=== PATIENT | female | born 1950 | race Caucasian/White ===

== ENCOUNTER 2016-11-12 17:35 | Emergency (ER) | payer OTHER, MEDICARE ==
--- NOTE | 2016-11-12 18:24 | CPEKG ---
Heart Rate: 92 RR Interval: 652 P-R Interval: 120 QRSD Interval: 134 QT Interval: 384 QTC Interval: 476 P [place]: 52 QRS [place]: 113 T Wave [place]: -2 EKG Severity - ABNORMAL ECG - EKG Impression: SINUS RHYTHM EKG Impression: RBBB AND LPFB Electronically Signed By: Kirt Benz 12-Nov-2016 21:57:35
--- NOTE | 2016-11-12 18:29 | EDPHY ---
HPI/HX/ROS/PE/MDM Narrative: CHIEF COMPLAINT: Back pain, chest pain. HISTORY OF PRESENT ILLNESS: The patient is a 66-year-old female presenting with acute back pain and chest pain that started around 1pm today. The patient reports an episode of right shoulder pain 6 days ago that radiates down her right arm. This pain improved after taking Advil and stopping her new cholesterol medication. However, today she developed right sided chest pain and right sided back pain. The pain in her back is localized between her right scapula and spine. She states the pain radiates through to her chest. She has right sided chest pain that is worse to the touch and worse when bending down. She states she was picking up things around the house today and may have strained a muscle. Her pain today was unrelieved with Advil. She has no history of shingles. The patient is finished a course of Amoxicillin which she was taking for sinusitis. No fever, chills, shortness of breath, palpitations, vomiting, diarrhea, urinary complaints, headache, or lightheadedness. REVIEW OF SYSTEMS: Aside from elements discussed in the HPI, a comprehensive 10-point review of systems was reviewed and is negative. PAST MEDICAL HISTORY: Diabetes, glaucoma, kidney stones, RBBB, Oral surgeries. SOCIAL HISTORY: . VITAL SIGNS: Reviewed by me GENERAL: Well-developed, well-nourished, resting comfortably in no respiratory distress. HEENT: Atraumatic. Eyes: No icterus, no injection. Mouth: moist mucous membranes. No erythema or lesions. Neck: supple with no adenopathy. LUNGS: Clear to auscultation bilaterally, no wheezes, rhonchi or rales. CARDIAC: Regular rate and rhythm, no rubs, murmurs or gallops. ABDOMEN: Soft, nontender, nondistended, bowel sounds normal. BACK: Well localized tenderness in back between spine and scapula, though pushing there does not reproduce pain in chest. EXTREMITIES: No trauma. No edema. Range of motion is normal throughout. NEURO: Alert and oriented, grossly nonfocal. SKIN: Warm and dry, no rash. PSYCHIATRIC: Normal mentation, no agitation. Portions of this note were transcribed by a medical assembly. I personally performed a history, physical exam, medical decision making, and confirmed accuracy of information the transcribed note. ED Course: The patient is a 66-year-old female with history of diabetes who presents with acute back and chest pain. The patient complain of back pain between her spine and scapula. On exam she has well localized tenderness there, however this pain does not reproduce pain in her chest when palpated. IV was established, the patient received 15mg Toradol IV for pain. Plan for EKG, chest x-ray, labs, and troponin. The 12 lead EKG was interpreted by myself. See hard copy and/or "tracemaster" electronic copy for interpretation. Sinus rhythm, RBBB. No change from previous EKG. X-ray of the chest was obtained. I viewed the images myself on the PACS system. Normal. See the full radiology report in the imaging section. I checked the patient's CPK to rule out rhabdomyolysis secondary to recent start of cholesterol medication. CPK is normal. Patient's workup so far is unremarkable. D-dimer is normal. WBC is normal. 7:55 p.m.: I discussed findings with the patient. The patient feels like her pain is flu-like. Plan to check influenza nasal swab. Patient's course was also discussed with Dr. Link. Patient will follow up with Cardiology for further evaluation and possible risk stratification in the next several days. I believe the patient is safe to be discharged home. I did not believe her complaints in symptoms currently represent acute coronary syndrome. She understands if her symptoms should change she should return to the emergency department. The differential diagnosis for the patient's chest pain included but was not limited to myocardial ischemia, pulmonary embolus, chest wall pain, musculoskeletal pain, pleural inflammation, and pulmonary infectious causes. Influenza is still pending. Patient will call the ED tomorrow for results. MDM: After history and physical examination, the differential for this patient's chest pain was considered, including but not limited to, myocardial ischemia, acute coronary syndrome, pulmonary embolus, chest wall pain, medication effect, viral syndrome, shingles, and pulmonary infectious causes. Patient's heart score is 3-4. The patient does have hypercholesterolemia, her heart score would before. However, she states that she was placed on statins given her age, history of diabetes, history of hypertension. We discussed the possibilities of her symptoms representing acute coronary syndrome. Symptoms are very atypical with persistent back tenderness, exacerbation of the discomfort with certain movements of the chest wall, pain in her leg which developed while in the emergency department and pain in the left axillary region which also developed while she was in the emergency department. She reports that just feels like she has the "flu". Her EKG is nonischemic. She does have right bundle branch block which she states is old. Her symptoms may be related to being started on statins. She has been off them now for 4 days. She did have a treadmill test performed 1 and half years ago which she states was normal. Plans were made for the patient to be evaluated by Dr. Chirag Link tomorrow. Patient and her family are comfortable with this plan. - Data Points Imaging Results: Imaging Impressions Chest X-Ray 11/12/16 18:28 Impression: Normal chest. Laboratory Results: Laboratory Results 11/12/16 18:35 11/12/16 18:35 11/12/16 11/12/16 11/12/16 20:00 18:35 18:35 WBC RBC Hgb Hct MCV MCH MCHC RDW Plt Count MPV Neut % (Auto) Lymph % (Auto) [place] % (Auto) Eos % (Auto) Baso % (Auto) Nucleat RBC Rel Count Absolute Neuts (auto) Absolute Lymphs (auto) Absolute Monos (auto) Absolute Eos (auto) Absolute Basos (auto) Absolute Nucleated RBC Immature Gran % Immature Gran # D-Dimer < 0.27 ug/mLFEU ug/mLFEU (0.00-0.50) Sodium 139 mEq/L mEq/L (134-144) Potassium 3.3 mEq/L L mEq/L (3.5-5.2) Chloride 97 mEq/L mEq/L (97-110) Carbon Dioxide 28 mEq/l mEq/l (22-31) Anion Gap 14 mEq/L mEq/L (8-16) BUN 20 mg/dL mg/dL (7-23) Creatinine 0.7 mg/dL mg/dL (0.6-1.0) Estimated GFR > 60 Glucose 128 mg/dL H mg/dL (70-100) Calcium 9.9 mg/dL mg/dL (8.5-10.4) Total Bilirubin 0.5 mg/dL mg/dL (0.1-1.4) Conjugated Bilirubin 0.4 mg/dL mg/dL (0.0-0.5) Unconjugated Bilirubin 0.1 mg/dL mg/dL (0.0-1.1) AST 38 IU/L IU/L (14-46) ALT 38 IU/L IU/L (9-52) Alkaline Phosphatase 106 IU/L IU/L (38-126) Creatine Kinase 120 IU/L IU/L (0-156) Troponin I < 0.012 ng/mL ng/mL (0-0.034) Total Protein 8.1 g/dL g/dL (6.3-8.2) Albumin 4.6 g/dL g/dL (3.5-5.0) Lipase 92.0 IU/L IU/L (23-300) Influenza A & B (PCR) NEGATIVE FOR FLU (NEGATIVE) 11/12/16 18:35 WBC 11.19 10^3/uL H 10^3/uL (3.80-9.50) RBC 5.15 10^6/uL 10^6/uL (4.18-5.33) Hgb 14.6 g/dL g/dL (12.6-16.3) Hct 44.0 % % (38.0-47.0) MCV 85.4 fL fL (81.5-99.8) MCH 28.3 pg pg (27.9-34.1) MCHC 33.2 g/dL g/dL (32.4-36.7) RDW 13.7 % % (11.5-15.2) Plt Count 275 10^3/uL 10^3/uL (150-400) MPV 9.5 fL fL (8.7-11.7) Neut % (Auto) 70.7 % % (39.3-74.2) Lymph % (Auto) 19.6 % % (15.0-45.0) [place] % (Auto) 7.9 % % (4.5-13.0) Eos % (Auto) 0.6 % % (0.6-7.6) Baso % (Auto) 0.4 % % (0.3-1.7) Nucleat RBC Rel Count 0.0 % % (0.0-0.2) Absolute Neuts (auto) 7.91 10^3/uL H 10^3/uL (1.70-6.50) Absolute Lymphs (auto) 2.19 10^3/uL 10^3/uL (1.00-3.00) Absolute Monos (auto) 0.88 10^3/uL H 10^3/uL (0.30-0.80) Absolute Eos (auto) 0.07 10^3/uL 10^3/uL (0.03-0.40) Absolute Basos (auto) 0.05 10^3/uL 10^3/uL (0.02-0.10) Absolute Nucleated RBC 0.00 10^3/uL 10^3/uL (0-0.01) Immature Gran % 0.8 % % (0.0-1.1) Immature Gran # 0.09 10^3/uL 10^3/uL (0.00-0.10) D-Dimer Sodium Potassium Chloride Carbon Dioxide Anion Gap BUN Creatinine Estimated GFR Glucose Calcium Total Bilirubin Conjugated Bilirubin Unconjugated Bilirubin AST ALT Alkaline Phosphatase Creatine Kinase Troponin I Total Protein Albumin Lipase Influenza A & B (PCR) Medications Given: Discontinued Medications Ketorolac Tromethamine (Toradol) 15 mg IVP EDNOW ONE Stop: 11/12/16 19:55 Last Admin: 11/12/16 20:03 Dose: 15 mg Ketorolac Tromethamine (Toradol) 15 mg IVP ONCE ONE Stop: 11/12/16 21:03 Last Admin: 11/12/16 21:03 Dose: 15 mg General Time Seen by Provider: 11/12/16 18:13 Initial Vital Signs: Initial Vital Signs Temperature (C) 37 C 11/12/16 17:41 Heart Rate 100 11/12/16 17:41 Respiratory Rate 18 11/12/16 17:41 Blood Pressure 189/103 H 11/12/16 17:41 O2 Sat (%) 93 11/12/16 17:41 O2 Delivery Mode Room Air Allergies/Adverse Reactions: No Known Allergies Allergy (Verified 02/13/16 06:43) Home Medications: Medication Instructions Recorded Losartan-Hctz 100-25 mg Tab 01/18/16 Metformin HCl 500 mg PO BID 01/18/16 Amoxicillin 11/12/16 Lovastatin 11/12/16 Departure - Departure Disposition: Home, Routine, Self-Care Clinical Impression: Chest pain, Muscle pain Condition: Good Instructions: Chest Pain (ED), Musculoskeletal Pain (ED) Additional Instructions: Dr. Bloise will call you tomorrow to arrange a followup appointment. If you do not hear from him please call his office. Please stop taking the cholesterol medications. Please discuss this reaction with your primary care physician. I recommend Ibuprofen (Motrin, Advil) or Naproxen Sodium (Aleve) for pain and anti-inflammatory effects. You may take either one, but do not take both. Your dose is: Ibuprofen 600 mg every 6-8 hours with food. OR Naproxen Sodium (Aleve) 220 mg every 12 hours. Return to the emergency department or seek care urgently if you develop worsening pain, palpitations, lightheadedness, dizziness, fainting, fevers, or other concerns. You may call the emergency department [phone] in about half an hour to obtain the results of your influenza testing. Referrals: Isaac Shah MD [Primary Care Provider] - As per Instructions Ryan Link MD [Medical Doctor] - As per Instructions Report Scribed for: Elana Houston Report Scribed by: Hetal Samuel Date of Report: 11/12/16 Time of Report: 19:06
[2016-11-12 18:58] LABS: % IMMATURE GRANULYOCYTES 0.8 % (0.0-1.1); ABSOLUTE IMMATURE GRANULOCYTES 0.09 10^3/uL (0.00-0.10); ADD DIFF? NO; ADD MORPH? NO; ADD SCAN? NO; ATYPICAL LYMPHOCYTE FLAG 10 (0-99); FRAGMENT RBC FLAG 0 (0-99); HEMOGLOBIN 14.6 g/dL (12.6-16.3); LEFT SHIFT FLG 10 (0-99); LIPEMIA HEMOLYSIS FLAG 80 (0-99); MEAN CELL HEMOGLOBIN 28.3 pg (27.9-34.1); MEAN CELL HEMOGLOBIN CONCENTR. 33.2 g/dL (32.4-36.7); MEAN CELL VOLUME 85.4 fL (81.5-99.8); MEAN PLATELET VOLUME 9.5 fL (8.7-11.7); PLATELET CLUMPS FLAG 0 (0-99); PLATELET COUNT 275 10^3/uL (150-400); RED BLOOD CELL COUNT 5.15 10^6/uL (4.18-5.33); RED CELL DISTRIBUTION WIDTH 13.7 % (11.5-15.2)
[2016-11-12 19:28] LABS: ALANINE AMINOTRANSFERASE 38 IU/L (9-52); ALBUMIN 4.6 g/dL (3.5-5.0); ALKALINE PHOSPHATASE 106 IU/L (38-126); ANION GAP 14 mEq/L (8-16); ASPARTATE AMINOTRANSFERASE 38 IU/L (14-46); BILIRUBIN,TOTAL 0.5 mg/dL (0.1-1.4); BILIRUBIN-CONJUGATED 0.4 mg/dL (0.0-0.5); BILIRUBIN-UNCONJUGATED 0.1 mg/dL (0.0-1.1); CALCIUM 9.9 mg/dL (8.5-10.4); CARBON DIOXIDE 28 mEq/l (22-31); CHLORIDE 97 mEq/L (97-110); CREATININE 0.7 mg/dL (0.6-1.0); GLOMERULAR FILTRATION RATE > 60; GLUCOSE 128 mg/dL (70-100); POTASSIUM 3.3 mEq/L (3.5-5.2); SODIUM 139 mEq/L (134-144); TOTAL PROTEIN 8.1 g/dL (6.3-8.2)
[2016-11-12 19:39] LABS: TROPONIN I < 0.012 ng/mL (0-0.034)
[2016-11-12] MEDS ORDERED: KETOROLAC 15 MG/1 ML SDV IVP ONE ×2 (19:54→21:02)
[2016-11-12] MEDS ORDERED: KETOROLAC 15 MG/1 ML SDV ONE (20:58)
[2016-11-12 21:16] VITALS: BP 176/72; PULSE 88; RESP 18; TEMP 98.4; O2SAT 96
== END 2016-11-12 21:16 | disposition home or self-care (01) ==
DX: R07.9 Chest pain, unspecified (principal); M79.1 Myalgia; E11.9 Type 2 diabetes mellitus without complications; Z79.84 Long term (current) use of oral hypoglycemic drugs
CPT/HCPCS: 71020; 93005; 96374; 96376; 99285; J1885

== ENCOUNTER → 2016-12-03 | Outpatient (CLI) | payer OTHER, MEDICARE | LOC: BHFA 13:00 | PROVIDERS: ATTEND Internal Medicine Cardiovascular Disease | DX: R07.9 Chest pain, unspecified (principal) | CPT/HCPCS: 78452; 93017; A9500 ==

== ENCOUNTER 2016-12-22 16:26 | Emergency (ER) | payer OTHER, MEDICARE ==
--- NOTE | 2016-12-22 16:44 | EDPHY ---
H & P Time Seen by Provider: 12/22/16 16:33 HPI/ROS: CHIEF COMPLAINT: Vertigo HISTORY OF PRESENT ILLNESS: This patient is a 66 year old female who presents to the Emergency Department complaining of an acute episode of vertigo presenting as she was undergoing an echocardiogram today. She states that she felt room-spinning dizziness when she was asked to lie down for the procedure. She reports associated nausea and vomited when she sat up when the echocardiogram was finished. Upon arrival to the Emergency Department, her nausea has improved. She describes a persistent spinning sensation exacerbated when she changes positions. She denies abdominal pain, chest pain, headache, or any additional complaints. She has a history of intermittent vertigo for which she has been evaluated by an overlock hemmer. REVIEW OF SYSTEMS: Constitutional: No fever, no chills Eyes: No visual changes ENT: No sore throat Respiratory: No cough, no shortness of breath Cardiac: No chest pain Gastrointestinal: +nausea, +vomiting, no abdominal pain Genitourinary: No hematuria, no dysuria Musculoskeletal: No leg pain or swelling Skin: No rash Neurological: +room-spinning dizziness, no headache, no numbness, no weakness Psychiatric: No depression Past Medical/Surgical History: Prior medical records reviewed, including most recent visit on 11/12/2016 for chest pain. PMH includes: diabetes, hypercholesteremia, kidney stones, glaucoma, RBBB, oral surgeries. Social History: . Physical Exam: General Appearance: Alert, no distress Eyes: Pupils equal and round, no conjunctival pallor or injection ENT, Mouth: Mucous membranes moist Neck: Normal inspection Respiratory: Lungs are clear to auscultation Cardiovascular: Regular rate and rhythm Gastrointestinal: Abdomen is soft and non- tender Neurological: A&O, nonfocal, normal gait Skin: Warm and dry, no rash Extremities: Nontender, no pedal edema Psychiatric: Mood and affect normal Constitutional: Initial Vital Signs Temperature (C) 36.2 C 12/22/16 16:28 Heart Rate 96 12/22/16 16:28 Respiratory Rate 16 12/22/16 16:28 Blood Pressure 154/75 H 12/22/16 16:28 O2 Sat (%) 92 12/22/16 16:28 O2 Delivery Mode Room Air Allergies/Adverse Reactions: No Known Allergies Allergy (Verified 02/13/16 06:43) Home Medications: Medication Instructions Recorded Losartan-Hctz 100-25 mg Tab 01/18/16 Metformin HCl 500 mg PO BID 01/18/16 Amlodipine Besylate 12/22/16 Meclizine HCl [Meclizine HCl 25 mg 25 mg PO TID PRN #15 tab 12/22/16 (RX,OTC)] Ondansetron Odt [Zofran Odt 4 mg 4 mg PO Q4 PRN #6 tab 12/22/16 (*)] Medical Decision Making - Diagnostics EKG Interpretation: EKG interpreted by me reveals normal sinus rhythm, rate 83; no ST/T changes; RBBB. EKG is unchanged from previous on 11/12/2016. ED Course/Re-evaluation: This is a 66-year-old female who presents with positional room-spinning dizziness with associated nausea and vomiting suspicious of vertigo. She reports a history of vertigo with similar presentation. On exam, she has horizontal nystagmus with left lateral gaze. There are no additional significant findings. Neuro exam normal. No concerning signs or symptoms for a central etiology for her vertigo. Will proceed with labs and EKG. IV established. 4mg IV Zofran and 25mg Antivert administered. EKG obtained and is unchanged from previous. Labs reviewed and are unremarkable. 1755: On reevaluation, the patient reports persistent nausea when attempting to ambulate. Additional 4mg IV Zofran administered. 1830: On reevaluation, the patient denies any nausea or dizziness. She will be discharged home in good condition with meclizine to use PRN for vertigo and Zofran PRN for nausea. She is given customary return precautions prior to discharge and instructions to follow-up with her PCP and/or ENT specialist for further evaluation. Differential Diagnosis: The differential diagnosis for the patient's dizziness included but was not limited to peripheral and central causes of vertigo, orthostatic causes including dehydration, cardiogenic and neurogenic causes, and blood loss. - Data Points Laboratory Results: Laboratory Results 12/22/16 16:41 12/22/16 16:41 12/22/16 12/22/16 16:41 16:41 WBC 11.36 10^3/uL H 10^3/uL (3.80-9.50) RBC 5.15 10^6/uL 10^6/uL (4.18-5.33) Hgb 14.5 g/dL g/dL (12.6-16.3) Hct 44.2 % % (38.0-47.0) MCV 85.8 fL fL (81.5-99.8) MCH 28.2 pg pg (27.9-34.1) MCHC 32.8 g/dL g/dL (32.4-36.7) RDW 14.0 % % (11.5-15.2) Plt Count 271 10^3/uL 10^3/uL (150-400) MPV 9.3 fL fL (8.7-11.7) Neut % (Auto) 72.7 % % (39.3-74.2) Lymph % (Auto) 19.4 % % (15.0-45.0) [place] % (Auto) 6.3 % % (4.5-13.0) Eos % (Auto) 0.8 % % (0.6-7.6) Baso % (Auto) 0.4 % % (0.3-1.7) Nucleat RBC Rel Count 0.0 % % (0.0-0.2) Absolute Neuts (auto) 8.27 10^3/uL H 10^3/uL (1.70-6.50) Absolute Lymphs (auto) 2.20 10^3/uL 10^3/uL (1.00-3.00) Absolute Monos (auto) 0.71 10^3/uL 10^3/uL (0.30-0.80) Absolute Eos (auto) 0.09 10^3/uL 10^3/uL (0.03-0.40) Absolute Basos (auto) 0.04 10^3/uL 10^3/uL (0.02-0.10) Absolute Nucleated RBC 0.00 10^3/uL 10^3/uL (0-0.01) Immature Gran % 0.4 % % (0.0-1.1) Immature Gran # 0.05 10^3/uL 10^3/uL (0.00-0.10) Sodium 141 mEq/L mEq/L (134-144) Potassium 3.8 mEq/L mEq/L (3.5-5.2) Chloride 103 mEq/L mEq/L (97-110) Carbon Dioxide 24 mEq/l mEq/l (22-31) Anion Gap 14 mEq/L mEq/L (8-16) BUN 17 mg/dL mg/dL (7-23) Creatinine 0.8 mg/dL mg/dL (0.6-1.0) Estimated GFR > 60 Glucose 152 mg/dL H mg/dL (70-100) Calcium 9.9 mg/dL mg/dL (8.5-10.4) Medications Given: Discontinued Medications Meclizine HCl (Meclizine Hcl) 25 mg PO EDNOW ONE Stop: 12/22/16 17:20 Last Admin: 12/22/16 17:30 Dose: 25 mg Ondansetron HCl (Zofran) 4 mg IVP EDNOW ONE Stop: 12/22/16 16:46 Last Admin: 12/22/16 16:50 Dose: 4 mg Ondansetron HCl (Zofran) 4 mg IVP EDNOW ONE Stop: 12/22/16 18:08 Last Admin: 12/22/16 18:13 Dose: 4 mg Departure - Departure Disposition: Home, Routine, Self-Care Clinical Impression: Vertigo Condition: Good Instructions: Vertigo (ED) Additional Instructions: 1. Take Antivert (meclizine) as prescribed, as needed for dizziness. Take Zofran as prescribed, as needed for nausea and vomiting. 2. Follow-up with your primary care provider for reevaluation if your symptoms do not entirely resolve in the next 3-5 days. You may also wish to follow-up with an Ear, Nose, and Throat specialist. 3. Return to the Emergency Department with uncontrollable vomiting, worsening dizziness, chest pain or shortness of breath, or for other serious concerns. Referrals: Isaac Shah MD [Primary Care Provider] - As per Instructions Prescriptions: Meclizine HCl [Meclizine HCl 25 mg (RX,OTC)] 25 mg PO TID PRN #15 tab PRN Reason: Dizziness Ondansetron Odt [Zofran Odt 4 mg (*)] 4 mg PO Q4 PRN #6 tab PRN Reason: Nausea Report Scribed for: Kelle Esposito Report Scribed by: Meche Tyler Date of Report: 12/22/16 Time of Report: 16:44 Physician Review and Approval Statement: 12/22/16 16:44 Portions of this note were transcribed by a regional medical director. I personally performed a history, physical exam, medical decision making, and confirmed accuracy of information the transcribed note.
[2016-12-22] MEDS ORDERED: ONDANSETRON 4 MG/2 ML VIAL IVP ONE ×2 (16:45→18:07)
[2016-12-22 16:55] LABS: % IMMATURE GRANULYOCYTES 0.4 % (0.0-1.1); ABSOLUTE IMMATURE GRANULOCYTES 0.05 10^3/uL (0.00-0.10); ADD DIFF? NO; ADD MORPH? NO; ADD SCAN? NO; ATYPICAL LYMPHOCYTE FLAG 20 (0-99); FRAGMENT RBC FLAG 0 (0-99); HEMATOCRIT 44.2 % (38.0-47.0); HEMOGLOBIN 14.5 g/dL (12.6-16.3); LEFT SHIFT FLG 20 (0-99); LIPEMIA HEMOLYSIS FLAG 80 (0-99); MEAN CELL HEMOGLOBIN 28.2 pg (27.9-34.1); MEAN CELL HEMOGLOBIN CONCENTR. 32.8 g/dL (32.4-36.7); MEAN CELL VOLUME 85.8 fL (81.5-99.8); MEAN PLATELET VOLUME 9.3 fL (8.7-11.7); PLATELET CLUMPS FLAG 0 (0-99); PLATELET COUNT 271 10^3/uL (150-400); RED BLOOD CELL COUNT 5.15 10^6/uL (4.18-5.33)
[2016-12-22 17:03] LABS: ANION GAP 14 mEq/L (8-16); CALCIUM 9.9 mg/dL (8.5-10.4); CARBON DIOXIDE 24 mEq/l (22-31); CHLORIDE 103 mEq/L (97-110); CREATININE 0.8 mg/dL (0.6-1.0); GLOMERULAR FILTRATION RATE > 60; GLUCOSE 152 mg/dL (70-100); POTASSIUM 3.8 mEq/L (3.5-5.2); SODIUM 141 mEq/L (134-144)
[2016-12-22] MEDS ORDERED: MECLIZINE HCL 25 MG TAB PO ONE (17:19)
--- NOTE | 2016-12-22 17:31 | CPEKG ---
Heart Rate: 83 RR Interval: 723 P-R Interval: 140 QRSD Interval: 130 QT Interval: 412 QTC Interval: 485 P [place]: 38 QRS [place]: 107 T Wave [place]: -5 EKG Severity - ABNORMAL ECG - EKG Impression: SINUS RHYTHM EKG Impression: RBBB AND LPFB Electronically Signed By: Kelle Esposito 22-Dec-2016 20:55:02
[2016-12-22 18:19] VITALS: TEMP 98.4; O2SAT 94
[2016-12-22] MEDS ORDERED: LABETALOL HCL 50 MG/10 ML SYR IVP ONE (18:34)
[2016-12-22 18:57] VITALS: BP 140/84; PULSE 70; RESP 14
== END 2016-12-22 18:53 | disposition home or self-care (01) ==
DX: R42 Dizziness and giddiness (principal); E11.9 Type 2 diabetes mellitus without complications; Z79.84 Long term (current) use of oral hypoglycemic drugs
CPT/HCPCS: 93005; 96374; 96376; 99284; J2405

== ENCOUNTER → 2016-12-22 | Outpatient (CLI) | payer OTHER, MEDICARE | LOC: BHFA 14:45 | PROVIDERS: ATTEND Internal Medicine Cardiovascular Disease | DX: R07.9 Chest pain, unspecified (principal); I10 Essential (primary) hypertension ==

== ENCOUNTER → 2017-02-23 | Outpatient (CLI) | payer OTHER, MEDICARE | LOC: FIMAGING 11:11 | PROVIDERS: ATTEND Internal Medicine | DX: Z12.31 Encounter for screening mammogram for malignant neoplasm of breast (principal) | CPT/HCPCS: G0202 ==

== ENCOUNTER → 2018-04-07 | Outpatient (CLI) | payer OTHER, MEDICARE | LOC: CIMAGING 16:55 | PROVIDERS: ATTEND Internal Medicine | DX: K76.0 Fatty (change of) liver, not elsewhere classified (principal); Z87.442 Personal history of urinary calculi | CPT/HCPCS: 76700-PO ==

== ENCOUNTER → 2018-06-22 | Outpatient (CLI) | payer OTHER, MEDICARE | LOC: FIMAGING 12:45 | PROVIDERS: ATTEND Physician Assistant | DX: R10.11 Right upper quadrant pain (principal) | CPT/HCPCS: 78227; A9537 ==

== ENCOUNTER → 2018-08-31 | Outpatient (CLI) | payer OTHER, MEDICARE | LOC: FIMAGING 11:48 | PROVIDERS: ATTEND Internal Medicine | DX: Z12.31 Encounter for screening mammogram for malignant neoplasm of breast (principal) ==

== ENCOUNTER → 2018-12-05 | Outpatient (CLI) | payer OTHER, MEDICARE | DX: I67.9 Cerebrovascular disease, unspecified (principal) ==